=== PATIENT | female | born 1990 | race African-American/Black ===

== ENCOUNTER 2017-11-04 15:54 | Emergency (ER) | payer BC, OTHER, MEDICAID | END 2017-11-04 16:33 | disposition home or self-care (01) | LOC: E/R 15:54 | DX: S61.412A Laceration without foreign body of left hand, initial encounter (principal); S61.012A Laceration without foreign body of left thumb without damage to nail, initial encounter; S21.219A Laceration without foreign body of unspecified back wall of thorax without penetration into thoracic cavity, initial encounter; Y09 Assault by unspecified means; Y92.9 Unspecified place or not applicable; Z87.891 Personal history of nicotine dependence | CPT/HCPCS: 99283 ==